=== PATIENT | female | born 1960 | race Caucasian/White ===

== ENCOUNTER 2025-09-20 13:48 | Emergency (ER) | payer BC, MEDICARE ==
[2025-09-20 14:06] VITALS: BP 80/47; PULSE 66
[2025-09-20 15:00] LABS: A/G RATIO 0.5; ALANINE AMINOTRANSFERASE,ALT 25 U/L (12-36); ASPARTATE AMNIOTRANSFERASE,AST 74 IU/L (5-25); BILIRUBIN TOTAL 2.4 mg/dL (0.1-1.3); BLOOD UREA NITROGEN,BUN 40 mg/dL (7-18); CARBON DIOXIDE,CO2 24 mmol/L (21-32); CREATININE 1.8 mg/dL (0.55-1.02); EST CRCL DRUG DOSING (CG) 28.04 mL/min; ESTIMATED GFR 31 mL/min (>60); GLUCOSE RANDOM 91 mg/dL (80-116); POTASSIUM,K 3.1 mmol/L (3.5-5.3); PROTEIN TOTAL,TP 7.0 g/dL (6.0-8.0); SODIUM,NA 125 mmol/L (135-145)
[2025-09-20 15:02] LABS: MEAN PLATELET VOLUME 9.9 fL (7.1-12.4); PLATELET COUNT,PLT 155 x10(3)uL (151-488); RED BLOOD CELL COUNT 4.13 x10(6)uL (3.60-5.20); RED CELL DISTRIBUTION WIDTH 14.9 % (12.3-16.5); WHITE BLOOD CELL COUNT,WBC 16.8 x10-3/uL (3.0-10.3)
[2025-09-20 15:03] LABS: INR 1.49 (1.00-1.24); PTT,PARTIAL THROMBOPLSTIN TIME 47.7 SECONDS (24.4-33.2)
[2025-09-20 15:06] LABS: CHLORIDE,CL 89 mmol/L (100-110)
[2025-09-20 15:19] LABS: BAND PERCENT MAN 5 % (0-6); SEG NEUTROPHILS PERCENT MAN 40 % (46-82)
[2025-09-20 15:20] LABS: LYMPHOCYTES PERCENT MAN 49 % (13-37)
[2025-09-20 15:21] LABS: MONOCYTES PERCENT MAN 6 % (4-12)
[2025-09-20] MEDS: Potassium Chloride 20 MEQ in Premix Bag 1 BAG IV ONE (15:47)
[2025-09-20] MEDS: Iopamidol 755 Mg/ML 100 ML Bottle IV SCH (15:48)
[2025-09-20] MEDS: VANCOmycin 1.5 GM/300 ML 1.5 GM in Premix Bag 1 BAG IV ONE (15:51)
[2025-09-20 16:23] LABS: GLUCOSE,URINE NORMAL (NORMAL); OCCULT BLOOD,URINE NEGATIVE (NEGATIVE)
[2025-09-20 16:30] LABS: APPEARANCE,URINE CLEAR (CLEAR)
== END 2025-09-20 18:10 ==
LOC: FB.ED 13:48
DX: A41.9 Sepsis, unspecified organism (principal); I10 Essential (primary) hypertension; J44.9 Chronic obstructive pulmonary disease, unspecified; F17.200 Nicotine dependence, unspecified, uncomplicated; Z88.0 Allergy status to penicillin; Z79.899 Other long term (current) drug therapy
CPT/HCPCS: 36415; 70450; 70450-26; 71045; 71045-26; 71260; 71260-26; 74177; 74177-26; 80053; 80307; 81003; 83605; 83690; 84145; 84484; 85025; 85610; 85730; 87040; 93005; 96361; 96365; 96366; 96368; 96375; 99285-25; J0696; J3375; J3480; J7030; Q9967